=== PATIENT | male | born 1935 | race Caucasian/White ===

== ENCOUNTER 2017-07-23 17:00 | Inpatient (IN) | payer OTHER, MEDICARE ==
[~2017-07-23] VITALS: Ht 177.8 cm; Wt 71.2 kg
[~2017-07-23 17:00] MED LIST: ASPI325T PO; ATOR1TAB18 PO; CARV6.25 PO; CITRTAB16 PO; COLA100C3 PO; COLC1CAP3 PO; FURO1TAB62 PO; MULT1TAB84 PO; NIFE15TA PO; OMEP20TA PO; PROS5TAB PO; TAMS5CAP PO; VITA10003 PO
[2017-07-23 17:15] VITALS: BP 164/65; PULSE 71; RESP 16; O2SAT 96
[2017-07-23 17:22] VITALS: BP 164/65; PULSE 67; RESP 22; O2SAT 97
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
[2017-07-23] MEDS ORDERED: MULTTAB67 PO (17:42)
[2017-07-23] MEDS ORDERED: COLA100C PO (17:42)
[2017-07-23] MEDS ORDERED: ASCO100016 PO (17:42)
[2017-07-23] MEDS ORDERED: VITA100036 PO (17:42)
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
[2017-07-23] MEDS ORDERED: MORPHINE SULFATE 4 MG/ML INJ IV PUSH ONE (19:00)
[2017-07-23] MEDS ORDERED: SODIUM CHLORIDE 0.9% FLUSH 10 ML FLUSH IV FLUSH PRN (19:00)
[2017-07-23] MEDS ORDERED: ONDANSETRON HCL 4 MG/2 ML VIAL IVP ONE (19:00)
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
[2017-07-23 19:17] VITALS: O2SAT 99
[2017-07-23 19:28] LABS: AUTOMATED NEUTROPHIL # 5.5 TH/MM3 (1.8-7.7); BASOPHIL % 0.6 % (0.0-2.0); EOSINOPHIL # 0.1 TH/MM3 (0-0.4); EOSINOPHIL % 1.4 % (0.0-4.0); HEMATOCRIT 35.6 % (39.0-51.0); HEMO FLAGS DIFF FINAL; LYMPHOCYTE # 0.8 TH/MM3 (1.0-4.8); MEAN CELL VOLUME 96.1 FL (80.0-100.0); MEAN CORPUSCULAR HEMOGLOBIN 31.4 PG (27.0-34.0); MEAN CORPUSCULAR HGB CONC 32.7 % (32.0-36.0); MONO % 9.7 % (0.0-8.0); NEUT % 77.3 % (16.0-70.0); PLATELET COUNT 177 TH/MM3 (150-450); RED CELL DISTRIBUTION WIDTH 14.4 % (11.6-17.2); WHITE BLOOD COUNT 7.2 TH/MM3 (4.0-11.0)
[2017-07-23 19:37] LABS: APTT (PATIENT) 27.3 SEC (24.3-30.1); PROTHROMBIN TIME - PATIENT 11.4 SEC (9.8-11.6)
[2017-07-23 19:47] LABS: ANION GAP 12 MEQ/L (5-15); AST (GOT) 20 U/L (15-37); BLOOD UREA NITROGEN 37 MG/DL (7-18); CHLORIDE 103 MEQ/L (98-107); GLOMERULAR FILTRATION RATE 7 ML/MIN (>89); POTASSIUM 4.6 MEQ/L (3.5-5.1); SODIUM (NA) 140 MEQ/L (136-145)
[2017-07-23 19:49] LABS: ALT (GPT) 23 U/L (12-78)
[2017-07-23 19:51] LABS: ALKALINE PHOSPHATASE 42 U/L (45-117); TOTAL BILIRUBIN ADULT 0.4 MG/DL (0.2-1.0)
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
[2017-07-23 21:44] VITALS: BP 116/56; PULSE 73; RESP 18; O2SAT 95
[2017-07-23] MEDS ORDERED: HYDROmorphone HCL PF 1 MG/ML VIAL IV PUSH ONE (22:00)
[2017-07-23 22:30] VITALS: BP 130/84; PULSE 70; RESP 14; O2SAT 96
[2017-07-23 23:00] VITALS: BP 135/62; PULSE 68; RESP 14; O2SAT 95
[2017-07-24] VITALS (7 sets, daily range): BP systolic 116–177; BP diastolic 50–65; PULSE 64–72; RESP 17–20; TEMP 95.9–98.5; O2SAT 94–97
[2017-07-24] MEDS ORDERED: ONDANSETRON HCL 4 MG/2 ML VIAL IV PRN ×2 (07:45→14:45)
[2017-07-24] MEDS ORDERED: SODIUM CHLORIDE 0.9% FLUSH 10 ML FLUSH IV FLUSH PRN ×2 (07:45→14:45)
[2017-07-24] MEDS ORDERED: ENALAPRILAT 1.25 MG/ML VIAL IV PRN (07:45)
[2017-07-24] MEDS ORDERED: SODIUM CHLOR 0.9% 1000 ML INJ 1,000 ML IV SCH (08:00)
[2017-07-24] MEDS: CALCIUM/VITAMIN D 250 MG/125 U TAB PO SCH ×2 (09:00→20:09)
[2017-07-24] MEDS: CHOLECALCIFEROL (VIT D3) 1000 UNIT TAB PO SCH (09:00)
[2017-07-24] MEDS ORDERED: MORPHINE SULFATE 4 MG/ML INJ IV PUSH PRN (09:00)
[2017-07-24] MEDS: PANTOPRAZOLE SOD 20 MG DELAYED RELEASE TAB PO SCH (09:00)
[2017-07-24] MEDS: COLCHICINE 0.6 MG TAB PO SCH (09:00)
[2017-07-24] MEDS: oxyCODONE/ACETAMINOPHEN 5 MG/325 MG TAB PO PRN ×2 (09:29→20:10)
[2017-07-24] MEDS: ASCORBIC ACID 500 MG TAB PO SCH (09:38)
[2017-07-24] MEDS: CARVEDILOL 6.25 MG TAB PO SCH ×2 (09:38→20:09)
[2017-07-24] MEDS: FUROSEMIDE 20 MG TAB PO SCH (09:38)
[2017-07-24] MEDS: TAMSULOSIN HCL 0.4 MG CAP PO SCH (09:38)
[2017-07-24] MEDS: MULTIVITAMIN TAB PO SCH (09:39)
[2017-07-24] MEDS: DOCUSATE SODIUM 100 MG CAP PO SCH ×2 (09:39→20:09)
[2017-07-24] MEDS: FINASTERIDE 5 MG TAB PO SCH (09:43)
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
--- NOTE | 2017-07-24 11:24 | HHI.PR ---
Objective Vitals/I&O Vital Signs Date Time Temp Pulse Resp B/P (MAP) Pulse Ox O2 Delivery O2 Flow Rate FiO2 07/24/17 08:31 98.4 72 20 177/65 (102) 95 07/23/17 23:00 Room Air Labs Laboratory Tests Test 07/23/17 19:16 White Blood Count 7.2 Red Blood Count 3.70 Hemoglobin 11.6 Hematocrit 35.6 Mean Corpuscular Volume 96.1 Mean Corpuscular Hemoglobin 31.4 Mean Corpuscular Hemoglobin Concent 32.7 Red Cell Distribution Width 14.4 Platelet Count 177 Mean Platelet Volume 7.0 Neutrophils (%) (Auto) 77.3 Lymphocytes (%) (Auto) 11.0 Monocytes (%) (Auto) 9.7 Eosinophils (%) (Auto) 1.4 Basophils (%) (Auto) 0.6 Neutrophils # (Auto) 5.5 Lymphocytes # (Auto) 0.8 Monocytes # (Auto) 0.7 Eosinophils # (Auto) 0.1 Basophils # (Auto) 0.0 CBC Comment DIFF FINAL Differential Comment Prothrombin Time 11.4 Prothromb Time International Ratio 1.0 Activated Partial Thromboplast Time 27.3 Blood Urea Nitrogen 37 Creatinine 7.32 Random Glucose 77 Total Protein 6.9 Albumin 3.4 Calcium Level 8.2 Alkaline Phosphatase 42 Aspartate Amino Transf (AST/SGOT) 20 Alanine Aminotransferase (ALT/SGPT) 23 Total Bilirubin 0.4 Sodium Level 140 Potassium Level 4.6 Chloride Level 103 Carbon Dioxide Level 25.0 Anion Gap 12 Estimat Glomerular Filtration Rate 7 Kristen Olmedo Jul 24, 2017 11:24
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
--- NOTE | 2017-07-24 13:25 | EKG ---
Date Performed: 07/23/2017 Time Performed: 19:27:31 PTAGE: 81 years EKG: SINUS BRADYCARDIA MARKED LEFT AXIS DEVIATION LOW QRS VOLTAGE IN PRECORDIAL LEADS SEPTAL ELI CARDIAL INFARCTION ABNORMAL ECG PREVIOUS TRACING : 10/01/2016 11.25 Since prior tracing, PVCs have resolved. R-wave progression is slightly worse. DOCTOR: Valentino Bynum Interpretating Date/Time 07/24/2017 13:24:36
[2017-07-24] MEDS ORDERED: SODIUM CHLOR 0.9% 1000 ML INJ 1,000 ML OTHER PRN ×2 (14:37)
[2017-07-24] MEDS ORDERED: SODIUM CHLOR 0.9% 1000 ML INJ 1,000 ML IV PRN (14:37)
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
[2017-07-24] MEDS ORDERED: GELATIN 12 MM/7 MM FOAM TOP PRN (14:45)
[2017-07-24] MEDS ORDERED: diphenhydrAMINE HCL 25 MG CAP PO PRN (14:45)
[2017-07-24] MEDS ORDERED: ACETAMINOPHEN 325 MG TAB PO PRN (14:45)
[2017-07-24] MEDS ORDERED: EPOETIN ALFA 4,000 UNITS/ML VIAL IV PRN (14:45)
[2017-07-24] MEDS ORDERED: cloNIDine HCL 0.1 MG TAB PO PRN (14:45)
[2017-07-24] MEDS ORDERED: HEPARIN SODIUM - IV 10,000 UNITS/10 ML VIAL IVF PRN (14:45)
[2017-07-24] MEDS ORDERED: NITROGLYCERIN 0.4 MG SL 25 TABS/BTL SL PRN (14:45)
[2017-07-24] MEDS ORDERED: ALBUMIN HUMAN 25% 25 GM/100 ML BAGP IV PRN (14:45)
[2017-07-24] MEDS ORDERED: MANNITOL 12.5 GM/50 ML VIAL IV PRN (14:45)
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
[2017-07-24] MEDS ORDERED: WALKER WHEELS/F1 MIS (19:17)
[2017-07-24] MEDS ORDERED: BEDSIDE COMMODE1 MI1 (19:17)
[2017-07-24] MEDS: ATORVASTATIN 80 MG TAB PO SCH (20:09)
[2017-07-24] MEDS: MAGNESIUM HYDROXIDE SUSP 30 ML CUP PO SCH (20:10)
[2017-07-24 21:04] LABS: HEMATOCRIT 33.4 % (39.0-51.0); MEAN CELL VOLUME 96.3 FL (80.0-100.0); MEAN CORPUSCULAR HEMOGLOBIN 31.3 PG (27.0-34.0); MEAN CORPUSCULAR HGB CONC 32.5 % (32.0-36.0); PLATELET COUNT 160 TH/MM3 (150-450); RED BLOOD COUNT 3.46 MIL/MM3 (4.50-5.90); REVIEW FLAG FINAL; WHITE BLOOD COUNT 5.8 TH/MM3 (4.0-11.0)
[2017-07-24 21:21] LABS: POTASSIUM 4.9 MEQ/L (3.5-5.1)
[2017-07-25] MEDS: oxyCODONE/ACETAMINOPHEN 5 MG/325 MG TAB PO PRN ×3 (01:25→20:23)
[2017-07-25 07:15] LABS: AUTOMATED NEUTROPHIL # 4.8 TH/MM3 (1.8-7.7); BASOPHIL % 0.6 % (0.0-2.0); EOSINOPHIL # 0.1 TH/MM3 (0-0.4); EOSINOPHIL % 1.4 % (0.0-4.0); HEMATOCRIT 32.2 % (39.0-51.0); HEMO FLAGS DIFF FINAL; LYMPH % 14.1 % (9.0-44.0); MEAN CELL VOLUME 96.8 FL (80.0-100.0); MEAN CORPUSCULAR HEMOGLOBIN 31.7 PG (27.0-34.0); MEAN CORPUSCULAR HGB CONC 32.8 % (32.0-36.0); MONO % 14.3 % (0.0-8.0); NEUT % 69.6 % (16.0-70.0); PLATELET COUNT 136 TH/MM3 (150-450); RED BLOOD COUNT 3.32 MIL/MM3 (4.50-5.90); RED CELL DISTRIBUTION WIDTH 14.1 % (11.6-17.2); WHITE BLOOD COUNT 6.8 TH/MM3 (4.0-11.0)
--- NOTE | 2017-07-25 07:16 | PD.ORT.PN ---
Subjective Subjective Remarks patient states feeling better. NAD. Objective Vitals Vital Signs Date Time Temp Pulse Resp B/P (MAP) Pulse Ox O2 Delivery O2 Flow Rate FiO2 07/24/17 23:37 97.1 67 18 116/52 (73) 94 07/24/17 21:39 96.9 70 18 124/60 (81) 94 07/24/17 16:00 95.9 65 17 121/59 (79) 97 07/24/17 11:00 97.2 64 17 121/50 (73) 94 07/24/17 10:29 18 07/24/17 08:31 98.4 72 20 177/65 (102) 95 I/O 07/24/17 07/24/17 07/24/17 07/25/17 07/25/17 07/25/17 07:00 15:00 23:00 07:00 15:00 23:00 Intake Total 480 ml 480 ml 240 ml Output Total 250 ml Balance 480 ml 480 ml -10 ml Intake Oral 480 ml 480 ml 240 ml Output Urine Total 250 ml # Voids 0 1 # Bowel Movements 0 0 0 Result Diagram: 07/24/17202707/24/172027 Objective Remarks Right sided pelvis tenderness with direct palpation and movement skin intact no obvious deformity NVI Assessment & Plan Problem List: (1) Fracture of right iliac wing ICD Codes: S32.301A - Unspecified fracture of right ilium, initial encounter for closed fracture Status: Acute Qualifiers: Qualified Codes: S32.301A - Unspecified fracture of right ilium, initial encounter for closed fracture Assessment and Plan Conservative management at this time. Physical therapy - up to 50% weight bearing to RLE. Medical management Orthopedically stable for discharge D/C planning - anticipating SNF F/U in [address] Liu in office. Wilbert Harrison Jul 25, 2017 07:16
[2017-07-25 07:49] LABS: CALCIUM-PROTEIN CORRECTED 7.5 MG/DL (8.5-10.1); POTASSIUM 5.4 MEQ/L (3.5-5.1); TOTAL BILIRUBIN ADULT 0.5 MG/DL (0.2-1.0)
[2017-07-25 08:00] VITALS: BP 103/48; PULSE 93; RESP 17; TEMP 97; O2SAT 96
[2017-07-25] MEDS: CARVEDILOL 6.25 MG TAB PO SCH ×2 (09:00→20:17)
[2017-07-25] MEDS: FUROSEMIDE 20 MG TAB PO SCH (09:38)
[2017-07-25] MEDS: ASCORBIC ACID 500 MG TAB PO SCH (09:38)
[2017-07-25] MEDS: PANTOPRAZOLE SOD 20 MG DELAYED RELEASE TAB PO SCH (09:38)
[2017-07-25] MEDS: DOCUSATE SODIUM 100 MG CAP PO SCH ×2 (09:38→20:17)
[2017-07-25] MEDS: CHOLECALCIFEROL (VIT D3) 1000 UNIT TAB PO SCH (09:38)
[2017-07-25] MEDS: CALCIUM/VITAMIN D 250 MG/125 U TAB PO SCH ×2 (09:38→20:17)
[2017-07-25] MEDS: MULTIVITAMIN TAB PO SCH (09:38)
[2017-07-25] MEDS: TAMSULOSIN HCL 0.4 MG CAP PO SCH (09:38)
[2017-07-25] MEDS: COLCHICINE 0.6 MG TAB PO SCH (09:39)
[2017-07-25] MEDS: FINASTERIDE 5 MG TAB PO SCH (09:39)
[2017-07-25] MEDS: LACTULOSE SYRUP 20 GM/30 ML CUP PO SCH (09:41)
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
[2017-07-25] MEDS ORDERED: SODIUM POLYSTYRENE SULFONATE SUSP 15 GM/60 ML CUP RECTAL ONE (11:15)
[2017-07-25] MEDS ORDERED: SODIUM POLYSTYRENE SULFONATE SUSP 15 GM/60 ML CUP PO ONE (11:15)
[2017-07-25 12:00] VITALS: BP 114/54; PULSE 69; RESP 16; TEMP 98.5; O2SAT 96
[2017-07-25] MEDS ORDERED: fentaNYL 25 MCG/HR PATCH T-DERMAL SCH (12:30)
[2017-07-25 16:00] VITALS: BP_SYST 117; BP_SYST 126; BP_DIAS 52; BP_DIAS 67; PULSE 65; PULSE 70; RESP 16; TEMP 97.4; TEMP 99; O2SAT 100; O2SAT 92
[2017-07-25 20:15] VITALS: BP 110/55; PULSE 71; RESP 17; TEMP 98.5; O2SAT 94
[2017-07-25] MEDS: MAGNESIUM HYDROXIDE SUSP 30 ML CUP PO SCH (20:17)
[2017-07-25] MEDS: ATORVASTATIN 80 MG TAB PO SCH (20:17)
[2017-07-25] MEDS: HEPARIN SODIUM - SQ 10,000 UNITS/ML VIAL SQ SCH (20:18)
[2017-07-26] VITALS: BP 115/54; PULSE 69; RESP 18; TEMP 97.6; O2SAT 93
[2017-07-26] MEDS: oxyCODONE/ACETAMINOPHEN 5 MG/325 MG TAB PO PRN ×5 (02:37→21:09)
[2017-07-26 08:00] VITALS: BP 127/37; PULSE 72; RESP 18; TEMP 97; O2SAT 96
[2017-07-26] MEDS ORDERED: BISACODYL EC 5 MG TABEC PO ONE (08:15)
[2017-07-26] MEDS ORDERED: BISACODYL 10 MG SUPP RECTAL ONE (08:15)
[2017-07-26] MEDS: HEPARIN SODIUM - SQ 10,000 UNITS/ML VIAL SQ SCH ×2 (08:45→21:07)
[2017-07-26] MEDS: CARVEDILOL 6.25 MG TAB PO SCH ×2 (08:48→21:08)
[2017-07-26] MEDS: CHOLECALCIFEROL (VIT D3) 1000 UNIT TAB PO SCH (08:48)
[2017-07-26] MEDS: PANTOPRAZOLE SOD 20 MG DELAYED RELEASE TAB PO SCH (08:48)
[2017-07-26] MEDS: MULTIVITAMIN TAB PO SCH (08:48)
[2017-07-26] MEDS: DOCUSATE SODIUM 100 MG CAP PO SCH ×2 (08:48→21:08)
[2017-07-26] MEDS: TAMSULOSIN HCL 0.4 MG CAP PO SCH (08:48)
[2017-07-26] MEDS: FINASTERIDE 5 MG TAB PO SCH (08:48)
[2017-07-26] MEDS: ASCORBIC ACID 500 MG TAB PO SCH (08:48)
[2017-07-26] MEDS: COLCHICINE 0.6 MG TAB PO SCH (08:48)
[2017-07-26] MEDS: FUROSEMIDE 20 MG TAB PO SCH (08:48)
[2017-07-26] MEDS: CALCIUM/VITAMIN D 250 MG/125 U TAB PO SCH ×2 (08:48→21:08)
[2017-07-26] MEDS: LACTULOSE SYRUP 20 GM/30 ML CUP PO SCH (08:51)
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
[2017-07-26 12:26] VITALS: BP 118/44; PULSE 66; RESP 18; TEMP 97.4; O2SAT 95
[2017-07-26] MEDS ORDERED: MAGN400S PO (13:21)
[2017-07-26 16:44] VITALS: BP 117/52; PULSE 72; RESP 16; TEMP 96.1; O2SAT 9
[2017-07-26 17:20] VITALS: O2SAT 96
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
[2017-07-26 20:25] VITALS: BP 132/66; PULSE 68; RESP 18; TEMP 98.3; O2SAT 96
[2017-07-26] MEDS: ATORVASTATIN 80 MG TAB PO SCH (21:08)
[2017-07-26] MEDS: MAGNESIUM HYDROXIDE SUSP 30 ML CUP PO SCH (21:09)
[2017-07-27] VITALS (7 sets, daily range): BP systolic 112–141; BP diastolic 45–64; PULSE 51–78; RESP 16–18; TEMP 95.8–99; O2SAT 94–98
[2017-07-27] MEDS: COLCHICINE 0.6 MG TAB PO SCH (08:37)
[2017-07-27] MEDS: DOCUSATE SODIUM 100 MG CAP PO SCH ×2 (08:37→21:29)
[2017-07-27] MEDS: ASCORBIC ACID 500 MG TAB PO SCH (08:37)
[2017-07-27] MEDS: CALCIUM/VITAMIN D 250 MG/125 U TAB PO SCH ×2 (08:37→21:29)
[2017-07-27] MEDS: TAMSULOSIN HCL 0.4 MG CAP PO SCH (08:37)
[2017-07-27] MEDS: LACTULOSE SYRUP 20 GM/30 ML CUP PO SCH (08:37)
[2017-07-27] MEDS: FUROSEMIDE 20 MG TAB PO SCH (08:37)
[2017-07-27] MEDS: FINASTERIDE 5 MG TAB PO SCH (08:37)
[2017-07-27] MEDS: PANTOPRAZOLE SOD 20 MG DELAYED RELEASE TAB PO SCH (08:37)
[2017-07-27] MEDS: CHOLECALCIFEROL (VIT D3) 1000 UNIT TAB PO SCH (08:37)
[2017-07-27] MEDS: MULTIVITAMIN TAB PO SCH (08:37)
[2017-07-27] MEDS: CARVEDILOL 6.25 MG TAB PO SCH ×2 (08:37→21:29)
[2017-07-27] MEDS: oxyCODONE/ACETAMINOPHEN 5 MG/325 MG TAB PO PRN (08:38)
[2017-07-27] MEDS: HEPARIN SODIUM - SQ 10,000 UNITS/ML VIAL SQ SCH ×2 (08:38→21:36)
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
--- NOTE | 2017-07-27 10:26 | PD.ORT.PN ---
Subjective Subjective Remarks Pelvis pain improving Objective Vitals Vital Signs Date Time Temp Pulse Resp B/P (MAP) Pulse Ox O2 Delivery O2 Flow Rate FiO2 07/27/17 00:50 96.9 71 18 137/63 (87) 96 07/26/17 20:25 98.3 68 18 132/66 (88) 96 07/26/17 17:20 96 21 07/26/17 16:44 96.1 72 16 117/52 (73) 9 07/26/17 12:26 97.4 66 18 118/44 (68) 95 I/O 07/26/17 07/26/17 07/26/17 07/27/17 07/27/17 07/27/17 06:59 14:59 22:59 06:59 14:59 22:59 Intake Total 120 ml 480 ml 240 ml 120 ml Output Total 3000 ml Balance 120 ml 480 ml -2760 ml 120 ml Intake Oral 120 ml 480 ml 240 ml 120 ml Hemodialysis 3000 ml # Voids 0 0 0 # Bowel Movements 0 0 0 Result Diagram: 07/25/1739 07/25/1739 Objective Remarks Right sided pelvis tenderness with direct palpation and movement able to flex hip with improved movement skin intact no obvious deformity NVI Assessment & Plan Problem List: (1) Fracture of right iliac wing ICD Codes: S32.301A - Unspecified fracture of right ilium, initial encounter for closed fracture Status: Acute Qualifiers: Qualified Codes: S32.301A - Unspecified fracture of right ilium, initial encounter for closed fracture Assessment and Plan Conservative management at this time. Physical therapy - up to 50% weight bearing to RLE. Medical management Orthopedically stable for discharge D/C planning - anticipating SNF F/U in [address] Liu in office. Odell Liu MD Jul 27, 2017 10:26
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
[2017-07-27] MEDS: MAGNESIUM HYDROXIDE SUSP 30 ML CUP PO SCH (21:29)
[2017-07-27] MEDS: ATORVASTATIN 80 MG TAB PO SCH (21:29)
[2017-07-28 00:30] VITALS: BP 111/56; PULSE 71; RESP 17; TEMP 97.6; O2SAT 93
[2017-07-28] MEDS ORDERED: MAGNESIUM CITRATE SOLN 300 ML BTL PO ONE (07:30)
[2017-07-28 07:36] VITALS: BP 130/61; PULSE 69; RESP 19; TEMP 96.1; O2SAT 95
[2017-07-28] MEDS: oxyCODONE/ACETAMINOPHEN 5 MG/325 MG TAB PO PRN (09:40)
[2017-07-28] MEDS: DOCUSATE SODIUM 100 MG CAP PO SCH (09:49)
[2017-07-28] MEDS: COLCHICINE 0.6 MG TAB PO SCH (09:52)
[2017-07-28] MEDS: MULTIVITAMIN TAB PO SCH (09:52)
[2017-07-28] MEDS: CARVEDILOL 6.25 MG TAB PO SCH (09:52)
[2017-07-28] MEDS: PANTOPRAZOLE SOD 20 MG DELAYED RELEASE TAB PO SCH (09:52)
[2017-07-28] MEDS: ASCORBIC ACID 500 MG TAB PO SCH (09:52)
[2017-07-28] MEDS: LACTULOSE SYRUP 20 GM/30 ML CUP PO SCH (09:52)
[2017-07-28] MEDS: FINASTERIDE 5 MG TAB PO SCH (09:52)
[2017-07-28] MEDS: CHOLECALCIFEROL (VIT D3) 1000 UNIT TAB PO SCH (09:52)
[2017-07-28] MEDS: CALCIUM/VITAMIN D 250 MG/125 U TAB PO SCH (09:52)
[2017-07-28] MEDS: TAMSULOSIN HCL 0.4 MG CAP PO SCH (09:52)
[2017-07-28] MEDS: FUROSEMIDE 20 MG TAB PO SCH (09:52)
[2017-07-28] MEDS: HEPARIN SODIUM - SQ 10,000 UNITS/ML VIAL SQ SCH (09:53)
[2017-07-28] MEDS ORDERED: OXYC1TAB63 PO (10:10)
[2017-07-28 11:18] VITALS: BP 118/45; PULSE 65; RESP 19; TEMP 97.6; O2SAT 95
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
== END 2017-07-28 13:58 | DRG 535 ==
LOC: NEPC 17:00 → NEDA 21:24 → NEPGCP 07-24 00:42 → OBSVTOIN 07-24 07:49 → N06B 07-24 10:13 → N06A 07-24 14:54
PROVIDERS: ADMIT Surgery; ATTEND Surgery
PROC: 5A1D00Z (ICD-10-PCS; principal; 2017-07-26)
DX: S32.301A Unspecified fracture of right ilium, initial encounter for closed fracture (principal); N18.6 End stage renal disease; I12.0 Hypertensive chronic kidney disease with stage 5 chronic kidney disease or end stage renal disease; E11.22 Type 2 diabetes mellitus with diabetic chronic kidney disease; I48.91 Unspecified atrial fibrillation; J98.11 Atelectasis; E78.5 Hyperlipidemia, unspecified; I25.10 Atherosclerotic heart disease of native coronary artery without angina pectoris; K80.20 Calculus of gallbladder without cholecystitis without obstruction; M10.9 Gout, unspecified; N20.0 Calculus of kidney; N40.0 Benign prostatic hyperplasia without lower urinary tract symptoms; H91.90 Unspecified hearing loss, unspecified ear; V43.52XA Car driver injured in collision with other type car in traffic accident, initial encounter; Y92.410 Unspecified street and highway as the place of occurrence of the external cause; Z79.82 Long term (current) use of aspirin; Z87.891 Personal history of nicotine dependence; Z95.1 Presence of aortocoronary bypass graft; Z99.2 Dependence on renal dialysis
CPT/HCPCS: 70450; 71250; 72125; 73502; 73564; 74176; 80048; 80053; 85025; 85027; 85610; 85730; 90935; 93005; 94150; 96374; 96375; G0378; J1170; J1644; J2270; J2405